=== PATIENT | male | born 1940 | race Caucasian/White ===

== ENCOUNTER 2018-09-06 13:16 | Inpatient (IN) | payer MEDICARE, BC ==
[~2018-09-06] VITALS: Ht 167.6 cm; Wt 106.3 kg
[~2018-09-06 13:16] MED LIST: ASPI-1265 PO; BENA20TA82 PO; GEMF600T5 CORPAK; OMEG1CAP21 PO; PROB500T10 PO; [UNRECOGNIZED DRUG - CODE] IJ
[2018-09-06 16:07] LABS: BASOPHILS # (AUTO) 0.1 X10'3 (0-0.2); BASOPHILS % (AUTO) 1.1 % (0-1); EOSINOPHILS # (AUTO) 0.1 X10'3 (0-0.9); HEMATOCRIT 46.4 % (42.0-52.0); HEMOGLOBIN 15.2 g/dl (14.0-17.9); LYMPHOCYTES # (AUTO) 1.8 X10'3 (1.1-4.8); LYMPHOCYTES % (AUTO) 18.2 % (21-51); MEAN CORPUSCULAR HEMOGLOBIN 29.8 PG (27.0-31.0); MEAN CORPUSCULAR HGB CONC 32.8 % (33.0-36.5); MEAN PLATELET VOLUME 7.2 FL (7.4-10.4); MONOCYTES # (AUTO) 1.1 X10'3 (0-0.9); NEUTROPHILS # (AUTO) 6.6 X10'3 (1.8-7.7); NEUTROPHILS % (AUTO) 68.7 % (42-75); PLATELET COUNT 339 X10'3 (140-440); RED CELL DISTRIBUTION WIDTH 14.4 % (11.5-14.5); WHITE BLOOD COUNT 9.6 X10'3 (4.5-11.0)
--- NOTE | 2018-09-06 16:56 | NUR ---
ATTEMTED US IV TWICE, UNABLE TO ACCESS, LEILA SAUCEDA PROVIDED NEEDLE AND US AT BEDSIDE FOR HIM TO ASSESS AND PLACE IV.
--- NOTE | 2018-09-06 17:38 | NUR ---
LEILA MENDOZA ATTEMPTED US IV AND WAS NOT SUCCESSFUL.
[2018-09-06 18:04] LABS: ALANINE AMINOTRANSFERASE 19 U/L (12-78); ALBUMIN 2.6 G/DL (3.4-5.0); ALBUMIN/GLOBULIN RATIO 0.5 (1.1-1.5); ALKALINE PHOSPHATASE 54 IU/L (46-116); ANION GAP 13 (8-16); ASPARTATE AMINO TRANSFERASE 15 U/L (10-37); BILIRUBIN,TOTAL 0.5 MG/DL (0.1-1.0); BLOOD UREA NITROGEN 25 MG/DL (7-18); BUN/CREATININE RATIO 22.1 (5.4-32.0); CALCIUM 9.7 MG/DL (8.5-10.1); CHLORIDE 98 MMOL/L (99-107); CREATININE 1.13 MG/DL (0.60-1.10); GLUCOSE 98 MG/DL (70-104); POTASSIUM 4.3 MMOL/L (3.5-5.1); SODIUM 135 MMOL/L (135-145); TOTAL CARBON DIOXIDE 24.4 MMOL/L (24-32); TOTAL PROTEIN 7.7 G/DL (6.4-8.2); eGFR 63 ML/MIN
[2018-09-06 18:23] LABS: INR 1.1 INR; PROTHROMBIN TIME 11.3 SECONDS (9.0-12.0)
--- NOTE | 2018-09-06 18:26 | NUR ---
BLANKA INFORMED PT NEEDS IV, EXPLAINED IV DIFFICULTY BY SAWYER CARUSO AND LEILA SAUCEDA
--- NOTE | 2018-09-06 18:53 | NUR ---
ATTEMPTED IV X 2 UNSUCCESSFUL.
--- NOTE | 2018-09-06 19:03 | NUR ---
SOHAIL CIFUENTES AT THE BEDSIDE, HE IS ORDERING AN ULTRASOUND OF LOWER EXTREMITIES IN PLACE OF CTA. WILL DO CTA IF NEEDED.
--- NOTE | 2018-09-06 19:24 | NUR ---
VASCULAR US TECH ON WAY.
--- NOTE | 2018-09-06 20:33 | NUR ---
VASCULAR ULTRASOUND ON THE WAY.
[2018-09-06] MEDS ORDERED: temazepam 15mg capsule PO PRN (21:00)
--- NOTE | 2018-09-06 21:38 | NUR ---
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
[2018-09-06] MEDS ORDERED: PROB500T34 PO (21:44)
[2018-09-06] MEDS ORDERED: FENO48TA15 PO (21:44)
[2018-09-06] MEDS ORDERED: CHOL200013 PO (21:44)
[2018-09-06] MEDS ORDERED: ADV50250 (21:44)
[2018-09-06] MEDS ORDERED: TRAM50TA2 PO (21:44)
[2018-09-06] MEDS ORDERED: QUELT PO (21:44)
[2018-09-06] MEDS ORDERED: ACET-2144 PO (21:44)
[2018-09-06] MEDS ORDERED: MULT-1141 PO (21:44)
[2018-09-06] MEDS ORDERED: ASPI-1265 PO (21:44)
[2018-09-06] MEDS ORDERED: morphine 4 MG/ML inj SYRINge IV ONE (22:15)
[2018-09-06] MEDS ORDERED: heparin 10,000 units/1 ML INJ IV ONE (22:50)
[2018-09-06] MEDS: normal saline 1000ml 1,000 ML IV SCH (22:52)
[2018-09-06] MEDS ORDERED: acetaminophen 650mg rectal suppository RC PRN (22:55)
[2018-09-06] MEDS ORDERED: metoclopramide 5 mg/ml inj IV PRN (22:55)
[2018-09-06] MEDS ORDERED: diphenhydrAMINE 25mg capsule PO PRN (22:55)
[2018-09-06] MEDS ORDERED: acetaminophen 325mg tablet PO PRN ×2 (22:55)
[2018-09-06] MEDS ORDERED: bisacodyl 10mg suppository rectal RC PRN (22:55)
[2018-09-06] MEDS ORDERED: HYDROmorphone 1 mg/ml syringe IV PRN (22:55)
[2018-09-06] MEDS ORDERED: magnesium hydroxide 30ml (MOM) UD suspension PO PRN (22:55)
[2018-09-06] MEDS ORDERED: diphenhydrAMINE 50 mg/ml inj IV PRN (22:55)
[2018-09-06] MEDS ORDERED: ondansetron/PF 4mg/2ml inj IV PRN (22:55)
[2018-09-06] MEDS ORDERED: mag hydrox/Alum hydrox/simeth 30ml oral suspension PO PRN (22:55)
[2018-09-06 23:24] LABS: HEMOGLOBIN A1C 5.7 % (4.5-6.2)
[2018-09-06 23:29] LABS: LIPASE 76 U/L (73-393); MAGNESIUM 1.9 MG/DL (1.5-2.4); PHOSPHORUS 4.2 MG/DL (2.3-4.5)
[2018-09-06] MEDS: heparin 25,000 UNIT/250ml bag 250 ML IV SCH (23:59)
--- NOTE | 2018-09-07 00:39 | NUR ---
Patient in room ED 6. I have received report from Igor RN in ED and had the opportunity to ask questions and will assume patient care when patient arrives to unit
--- NOTE | 2018-09-07 00:39 | NUR ---
REPORT CALLED TO ELEONORA CARUSO
[2018-09-07 01:15] VITALS: BP 124/64
[2018-09-07 03:54] LABS: BASOPHILS % (AUTO) 0.4 % (0-1); EOSINOPHILS # (AUTO) 0.1 X10'3 (0-0.9); EOSINOPHILS % (AUTO) 1.9 % (0-6); HEMATOCRIT 42.1 % (42.0-52.0); HEMOGLOBIN 13.7 g/dl (14.0-17.9); LYMPHOCYTES # (AUTO) 2.6 X10'3 (1.1-4.8); LYMPHOCYTES % (AUTO) 31.9 % (21-51); MEAN CORPUSCULAR HEMOGLOBIN 29.7 PG (27.0-31.0); MEAN CORPUSCULAR HGB CONC 32.6 % (33.0-36.5); MEAN CORPUSCULAR VOLUME 91.2 FL (78-98); MEAN PLATELET VOLUME 7.2 FL (7.4-10.4); MONOCYTES # (AUTO) 0.7 X10'3 (0-0.9); MONOCYTES % (AUTO) 8.5 % (2-12); NEUTROPHILS # (AUTO) 4.6 X10'3 (1.8-7.7); NEUTROPHILS % (AUTO) 57.3 % (42-75); PLATELET COUNT 342 X10'3 (140-440); RED BLOOD COUNT 4.61 X10'6 (4.70-6.10)
[2018-09-07] MEDS: heparin 10,000 units/1 ML INJ IV PRN ×2 (04:24→22:23)
[2018-09-07] MEDS: heparin 25,000 UNIT/250ml bag 250 ML IV SCH ×4 (04:27→22:24)
[2018-09-07 04:35] LABS: ALANINE AMINOTRANSFERASE 22 U/L (12-78); ALBUMIN 2.4 G/DL (3.4-5.0); ALBUMIN/GLOBULIN RATIO 0.5 (1.1-1.5); ALKALINE PHOSPHATASE 55 IU/L (46-116); ANION GAP 14 (8-16); ASPARTATE AMINO TRANSFERASE 19 U/L (10-37); BILIRUBIN,TOTAL 0.4 MG/DL (0.1-1.0); BLOOD UREA NITROGEN 26 MG/DL (7-18); BUN/CREATININE RATIO 24.5 (5.4-32.0); CALCIUM 9.3 MG/DL (8.5-10.1); CHLORIDE 100 MMOL/L (99-107); CREATININE 1.06 MG/DL (0.60-1.10); GLUCOSE 90 MG/DL (70-104); POTASSIUM 3.9 MMOL/L (3.5-5.1); SODIUM 137 MMOL/L (135-145); TOTAL CARBON DIOXIDE 22.8 MMOL/L (24-32); TOTAL PROTEIN 7.4 G/DL (6.4-8.2); eGFR 67 ML/MIN
[2018-09-07 04:37] LABS: CHOL/HDL RATIO 4.2 (0.00-4.99); CHOLESTEROL 108 MG/DL (0-200); HDL CHOLESTEROL 26 MG/DL (35-60); LDL CHOLESTEROL 60 MG/DL (50-100); TRIGLYCERIDES 156 MG/DL (20-135)
--- NOTE | 2018-09-07 05:59 | NUR ---
Unable to start another new IV on patient. It has been attempted multiple times. Unable to run IV fluids NS @ 20mL. will try to have someone place IV during day shift for CT scan- at least a 20 G.
--- NOTE | 2018-09-07 06:45 | NUR ---
Patient in room [facility]. I have received report from SHADY Grant and had the opportunity to ask questions and assume patient care.
[2018-09-07 07:00] VITALS: BP 136/78
--- NOTE | 2018-09-07 07:13 | NUR ---
Problems reprioritized. Patient report given, questions answered & plan of care reviewed with SHADY Keller.
[2018-09-07] MEDS: docusate sod 100mg capsule PO SCH ×2 (08:21→20:53)
[2018-09-07] MEDS: HYDROcodone/acetaminophen 10/325mg tab PO PRN ×3 (08:22→20:54)
[2018-09-07] MEDS: atorvastatin 20mg tablet PO SCH (08:22)
[2018-09-07] MEDS: furosemide 10 MG/1 ML 10ml inj IV SCH (08:23)
[2018-09-07] MEDS: lisinopril 20mg tablet PO SCH (08:23)
[2018-09-07] MEDS: aspirin 81mg tab.chew PO SCH (08:29)
[2018-09-07] MEDS ORDERED: iohexol 350 MG/ML 50ML vial IV ONE (09:53)
[2018-09-07] MEDS ORDERED: iohexol 350MG/ML 100ml bottle IV ONE (09:53)
--- NOTE | 2018-09-07 09:53 | NUR ---
Extended PIV inserted to the right upper arm basilic vein x 1 attempt using ultrasound. Wayne lawler. Addendum: 09/07/18 at 0953 by Cate Macdonald RN Amended: Links added.
--- NOTE | 2018-09-07 11:56 | NUR ---
Paged Mabel Paiz to call Dr Yeh.
--- NOTE | 2018-09-07 14:47 | NUR ---
Judy consult: Pt with no documented edema. Patient on regular diet with documented PO intake 100% meeting nutrient needs. Pt currently does not meet criteria for malnutrition at this time. Will continue to follow. Addendum: 09/07/18 at [address] Amended: Links added.
--- NOTE | 2018-09-07 18:25 | NUR ---
Problems reprioritized. Patient report given, questions answered & plan of care reviewed with SHADY Redmond.
--- NOTE | 2018-09-07 18:30 | NUR ---
Patient in room [facility]. I have received report from TIFFANIE CARUSO and had the opportunity to ask questions and assume patient care.
[2018-09-07 20:00] VITALS: BP 121/58
[2018-09-07] MEDS: famotidine 20mg tablet PO SCH (20:53)
[2018-09-08] VITALS: BP 120/62
[2018-09-08] MEDS: heparin 25,000 UNIT/250ml bag 250 ML IV SCH ×2 (02:58→14:10)
[2018-09-08] MEDS: HYDROcodone/acetaminophen 10/325mg tab PO PRN ×3 (05:40→20:57)
--- NOTE | 2018-09-08 06:25 | NUR ---
Problems reprioritized. Patient report given, questions answered & plan of care reviewed with TIFFANIE CARUSO.
--- NOTE | 2018-09-08 06:30 | NUR ---
Patient in room [facility]. I have received report from Nuvia Redmond and had the opportunity to ask questions and assume patient care.
[2018-09-08 06:50] LABS: BASOPHILS # (AUTO) 0.1 X10'3 (0-0.2); BASOPHILS % (AUTO) 0.8 % (0-1); EOSINOPHILS # (AUTO) 0.2 X10'3 (0-0.9); EOSINOPHILS % (AUTO) 3.7 % (0-6); HEMATOCRIT 42.4 % (42.0-52.0); HEMOGLOBIN 13.7 g/dl (14.0-17.9); LYMPHOCYTES # (AUTO) 2.1 X10'3 (1.1-4.8); LYMPHOCYTES % (AUTO) 31.2 % (21-51); MEAN CORPUSCULAR HEMOGLOBIN 29.3 PG (27.0-31.0); MEAN CORPUSCULAR HGB CONC 32.4 % (33.0-36.5); MEAN CORPUSCULAR VOLUME 90.6 FL (78-98); MONOCYTES # (AUTO) 0.6 X10'3 (0-0.9); MONOCYTES % (AUTO) 8.9 % (2-12); NEUTROPHILS # (AUTO) 3.7 X10'3 (1.8-7.7); NEUTROPHILS % (AUTO) 55.4 % (42-75); PLATELET COUNT 398 X10'3 (140-440); RED BLOOD COUNT 4.68 X10'6 (4.70-6.10); RED CELL DISTRIBUTION WIDTH 13.8 % (11.5-14.5); WHITE BLOOD COUNT 6.7 X10'3 (4.5-11.0)
[2018-09-08 07:00] VITALS: BP 124/80
[2018-09-08] MEDS: docusate sod 100mg capsule PO SCH ×2 (08:27→20:48)
[2018-09-08] MEDS: furosemide 10 MG/1 ML 10ml inj IV SCH (08:27)
[2018-09-08] MEDS: aspirin 81mg tab.chew PO SCH (08:28)
[2018-09-08] MEDS: lisinopril 20mg tablet PO SCH (08:28)
[2018-09-08] MEDS: atorvastatin 20mg tablet PO SCH (08:28)
[2018-09-08 08:41] LABS: ALANINE AMINOTRANSFERASE 25 U/L (12-78); ALBUMIN 2.4 G/DL (3.4-5.0); ALBUMIN/GLOBULIN RATIO 0.5 (1.1-1.5); ALKALINE PHOSPHATASE 52 IU/L (46-116); ASPARTATE AMINO TRANSFERASE 21 U/L (10-37); BILIRUBIN,TOTAL 0.4 MG/DL (0.1-1.0); BLOOD UREA NITROGEN 33 MG/DL (7-18); CALCIUM 9.6 MG/DL (8.5-10.1); CREATININE 1.27 MG/DL (0.60-1.10); GLUCOSE 99 MG/DL (70-104); TOTAL PROTEIN 7.5 G/DL (6.4-8.2); eGFR 55 ML/MIN
[2018-09-08 08:47] LABS: CHLORIDE 101 MMOL/L (99-107); POTASSIUM 3.7 MMOL/L (3.5-5.1); SODIUM 139 MMOL/L (135-145)
[2018-09-08 08:48] LABS: ANION GAP 11 (8-16); TOTAL CARBON DIOXIDE 26.9 MMOL/L (24-32)
[2018-09-08 11:00] VITALS: BP 129/73
[2018-09-08] MEDS: morphine 4 MG/ML inj SYRINge IV PRN (14:55)
[2018-09-08 15:18] VITALS: BP 116/63
[2018-09-08 15:32] VITALS: BP 116/67
[2018-09-08 18:00] VITALS: BP 116/59
--- NOTE | 2018-09-08 18:52 | NUR ---
Problems reprioritized. Patient report given, questions answered & plan of care reviewed with SHADY Kothari.
--- NOTE | 2018-09-08 19:06 | NUR ---
Patient in room [facility]. I have received report from Arianna CARUSO and had the opportunity to ask questions and assume patient care.
[2018-09-08] MEDS: famotidine 20mg tablet PO SCH (20:49)
[2018-09-09] VITALS: BP 128/69
[2018-09-09] MEDS: normal saline 1000ml 1,000 ML IV SCH (00:15)
[2018-09-09] MEDS: heparin 25,000 UNIT/250ml bag 250 ML IV SCH ×4 (00:15→16:50)
[2018-09-09] MEDS: morphine 4 MG/ML inj SYRINge IV PRN (00:42)
[2018-09-09 06:16] LABS: BASOPHILS % (AUTO) 0.7 % (0-1); EOSINOPHILS # (AUTO) 0.3 X10'3 (0-0.9); EOSINOPHILS % (AUTO) 5.3 % (0-6); HEMATOCRIT 40.1 % (42.0-52.0); HEMOGLOBIN 13.1 g/dl (14.0-17.9); LYMPHOCYTES # (AUTO) 1.6 X10'3 (1.1-4.8); LYMPHOCYTES % (AUTO) 31.9 % (21-51); MEAN CORPUSCULAR HEMOGLOBIN 29.6 PG (27.0-31.0); MEAN CORPUSCULAR HGB CONC 32.7 % (33.0-36.5); MEAN CORPUSCULAR VOLUME 90.6 FL (78-98); MEAN PLATELET VOLUME 7.7 FL (7.4-10.4); MONOCYTES # (AUTO) 0.5 X10'3 (0-0.9); MONOCYTES % (AUTO) 10.4 % (2-12); NEUTROPHILS # (AUTO) 2.8 X10'3 (1.8-7.7); NEUTROPHILS % (AUTO) 51.7 % (42-75); PLATELET COUNT 417 X10'3 (140-440); RED BLOOD COUNT 4.42 X10'6 (4.70-6.10); RED CELL DISTRIBUTION WIDTH 12.9 % (11.5-14.5); WHITE BLOOD COUNT 5.2 X10'3 (4.5-11.0)
[2018-09-09 06:28] LABS: ALANINE AMINOTRANSFERASE 24 U/L (12-78); ALBUMIN 2.3 G/DL (3.4-5.0); ALBUMIN/GLOBULIN RATIO 0.5 (1.1-1.5); ALKALINE PHOSPHATASE 56 IU/L (46-116); ANION GAP 10 (8-16); ASPARTATE AMINO TRANSFERASE 16 U/L (10-37); BILIRUBIN,TOTAL 0.3 MG/DL (0.1-1.0); BLOOD UREA NITROGEN 30 MG/DL (7-18); BUN/CREATININE RATIO 26.8 (5.4-32.0); CHLORIDE 103 MMOL/L (99-107); CREATININE 1.12 MG/DL (0.60-1.10); GLUCOSE 102 MG/DL (70-104); POTASSIUM 3.8 MMOL/L (3.5-5.1); SODIUM 141 MMOL/L (135-145); TOTAL CARBON DIOXIDE 27.7 MMOL/L (24-32); eGFR 63 ML/MIN
--- NOTE | 2018-09-09 06:30 | NUR ---
Patient in room [facility]. I have received report from SHADY Kothari and had the opportunity to ask questions and assume patient care.
[2018-09-09 07:00] VITALS: BP 120/66
--- NOTE | 2018-09-09 07:04 | NUR ---
Problems reprioritized. Patient report given, questions answered & plan of care reviewed with Tere RN.
[2018-09-09] MEDS: docusate sod 100mg capsule PO SCH ×2 (09:33→20:34)
[2018-09-09] MEDS: atorvastatin 20mg tablet PO SCH (09:33)
[2018-09-09] MEDS: aspirin 81mg tab.chew PO SCH (09:34)
[2018-09-09] MEDS: lisinopril 20mg tablet PO SCH (09:34)
[2018-09-09] MEDS: famotidine 20mg tablet PO SCH (09:34)
[2018-09-09] MEDS: furosemide 10 MG/1 ML 10ml inj IV SCH (09:35)
[2018-09-09 11:00] VITALS: BP 122/69
[2018-09-09 18:00] VITALS: BP 105/72
--- NOTE | 2018-09-09 18:30 | NUR ---
Problems reprioritized. Patient report given, questions answered & plan of care reviewed with SHADY Kothari.
[2018-09-09] MEDS: apixaban 5mg tablet PO SCH (20:34)
[2018-09-09] MEDS: HYDROcodone/acetaminophen 10/325mg tab PO PRN (20:43)
[2018-09-10] VITALS: BP 120/75
[2018-09-10] MEDS: HYDROcodone/acetaminophen 10/325mg tab PO PRN (05:00)
[2018-09-10 06:30] VITALS: BP 121/59
--- NOTE | 2018-09-10 06:30 | NUR ---
Patient in room [facility]. I have received report from SHADY Kothari and had the opportunity to ask questions and assume patient care.
--- NOTE | 2018-09-10 06:47 | NUR ---
Problems reprioritized. Patient report given, questions answered & plan of care reviewed with Tere RN.
[2018-09-10] MEDS: apixaban 5mg tablet PO SCH (09:44)
[2018-09-10] MEDS: docusate sod 100mg capsule PO SCH (09:44)
[2018-09-10] MEDS: lisinopril 20mg tablet PO SCH (09:45)
[2018-09-10] MEDS: atorvastatin 20mg tablet PO SCH (09:45)
[2018-09-10] MEDS: aspirin 81mg tab.chew PO SCH (09:46)
[2018-09-10] MEDS: furosemide 10 MG/1 ML 10ml inj IV SCH (09:48)
[2018-09-10] MEDS ORDERED: APIX5TAB3 PO (10:58)
[2018-09-10 11:00] VITALS: BP 132/78
--- NOTE | 2018-09-10 13:05 | NUR ---
DC inst provided to pt & spouse. IVs DC'd, tips intact. All belongings sent w/pt. WC to front lobby.
== END 2018-09-10 13:05 | disposition home or self-care (01) | DRG 314 ==
LOC: ER 13:16 → ED HOLD 22:52 → SUR 3N 09-07 01:05
PROVIDERS: ADMIT Family Medicine; ATTEND Hospitalist
PROC: B4201ZZ Computerized Tomography (CT Scan) of Abdominal Aorta using Low Osmolar Contrast (ICD-10-PCS; principal; 2018-09-07)
PROC: B42H1ZZ Computerized Tomography (CT Scan) of Bilateral Lower Extremity Arteries using Low Osmolar Contrast (ICD-10-PCS; 2018-09-07)
PROC: B42H1ZZ Computerized Tomography (CT Scan) of Bilateral Lower Extremity Arteries using Low Osmolar Contrast (ICD-10-PCS; 2018-09-07)
DX: T82.868A Thrombosis due to vascular prosthetic devices, implants and grafts, initial encounter (principal); I50.23 Acute on chronic systolic (congestive) heart failure; J96.10 Chronic respiratory failure, unspecified whether with hypoxia or hypercapnia; I82.412 Acute embolism and thrombosis of left femoral vein; I82.432 Acute embolism and thrombosis of left popliteal vein; I70.212 Atherosclerosis of native arteries of extremities with intermittent claudication, left leg; E66.9 Obesity, unspecified; E78.5 Hyperlipidemia, unspecified; I71.4 Abdominal aortic aneurysm, without rupture; I11.0 Hypertensive heart disease with heart failure; Z96.651 Presence of right artificial knee joint; I25.10 Atherosclerotic heart disease of native coronary artery without angina pectoris; R26.9 Unspecified abnormalities of gait and mobility; I70.202 Unspecified atherosclerosis of native arteries of extremities, left leg; Z99.81 Dependence on supplemental oxygen; Z79.899 Other long term (current) drug therapy; Z79.82 Long term (current) use of aspirin; Z86.79 Personal history of other diseases of the circulatory system; Z68.37 Body mass index [BMI] 37.0-37.9, adult; Y92.89 Other specified places as the place of occurrence of the external cause
CPT/HCPCS: 36415; 71045; 75635; 80053; 80061; 83036; 83690; 83735; 83880; 84100; 84443; 84484; 85025; 85610; 85730; 87070; 93005; 93306; 93922; 93926; 93971; 93978; 96374; 96375; 97116; 97162; 99285; G0378; J1170; J1644; J1940; J2270; J7030; Q9967

== ENCOUNTER 2018-11-30 20:22 | Inpatient (IN) | payer MEDICARE, BC | END 2018-12-03 14:10 | disposition short-term general hospital (02) | LOC: ER 20:22 → ED HOLD 22:31 → SUR 3N 12-01 17:24 ==

== ENCOUNTER 2018-12-15 02:16 | Inpatient (IN) | payer MEDICARE, BC | END 2018-12-20 13:27 | disposition short-term general hospital (02) | LOC: ORTHO 4S 02:16 | DX: T82.898A Other specified complication of vascular prosthetic devices, implants and grafts, initial encounter (principal); I48.2 Chronic atrial fibrillation; Z79.01 Long term (current) use of anticoagulants; B95.1 Streptococcus, group B, as the cause of diseases classified elsewhere; B95.8 Unspecified staphylococcus as the cause of diseases classified elsewhere ==